=== PATIENT | female | born 1970 | race Caucasian/White ===

== ENCOUNTER → 2018-05-11 10:58 | Outpatient (CLI) | payer MEDICARE | END | disposition home or self-care (01) | LOC: D.NM 10:58 | DX: K21.9 Gastro-esophageal reflux disease without esophagitis (principal); R11.2 Nausea with vomiting, unspecified; R10.9 Unspecified abdominal pain ==

== ENCOUNTER → 2018-05-21 06:59 | Outpatient (CLI) | payer MEDICARE ==
[2018-05-21 08:38] LABS: HCG SERUM NEGATIVE (NEGATIVE)
== END | disposition home or self-care (01) ==
LOC: D.US 06:59
PROVIDERS: Internal Medicine Gastroenterology
DX: R10.9 Unspecified abdominal pain (principal); R11.2 Nausea with vomiting, unspecified; K21.9 Gastro-esophageal reflux disease without esophagitis

== ENCOUNTER → 2018-07-06 10:13 | Outpatient (CLI) | payer MEDICARE | END | disposition home or self-care (01) | LOC: D.CT 10:13 | DX: R93.8 Abnormal findings on diagnostic imaging of other specified body structures (principal); K76.89 Other specified diseases of liver ==